=== PATIENT | male | born 2000 | race Caucasian/White ===

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

== ENCOUNTER 2023-02-26 09:44 | Emergency (ER) | payer OTHER ==
[~2023-02-26] VITALS: Ht 190.5 cm; Wt 74.8 kg
[2023-02-26 09:54] VITALS: BP_SYST 137; PULSE 89; RESP 18; TEMP 97.8; O2SAT 98
[2023-02-26] MEDS ORDERED: LIDOCAINE 1% 10 MG/ML, 20 ML MDV INJ ONE (10:00)
[2023-02-26] MEDS ORDERED: DIPHTH,PERTUSS(ACELL),TET VAC 0.5 ML VIAL (Tdap) I.M. ONE (10:00)
[2023-02-26] MEDS ORDERED: BACITRACIN 1 GM OINT TP ONE (10:00)
[2023-02-26 10:53] VITALS: BP_SYST 137; PULSE 60; RESP 16; TEMP 98.3; O2SAT 97
== END 2023-02-26 10:51 | disposition home or self-care (01) ==
LOC: SED 09:44
DX: S61.212A Laceration without foreign body of right middle finger without damage to nail, initial encounter (principal); Z88.0 Allergy status to penicillin; Z79.899 Other long term (current) drug therapy; W23.0XXA Caught, crushed, jammed, or pinched between moving objects, initial encounter; Y93.89 Activity, other specified; Y92.89 Other specified places as the place of occurrence of the external cause; Y99.8 Other external cause status
CPT/HCPCS: 99283; 90715; 90471; 12001; J2001

== ENCOUNTER 2023-03-05 12:30 | Emergency (ER) | payer OTHER ==
[~2023-03-05] VITALS: Ht 190.5 cm; Wt 88.5 kg
[2023-03-05 12:40] VITALS: BP_SYST 112; PULSE 89; RESP 18; TEMP 97.9; O2SAT 99
[2023-03-05 14:33] VITALS: BP_SYST 112; PULSE 89; RESP 18; TEMP 97.9; O2SAT 99
== END 2023-03-05 14:33 | disposition home or self-care (01) ==
LOC: SED 12:30
DX: S61.213D Laceration without foreign body of left middle finger without damage to nail, subsequent encounter (principal); Z48.02 Encounter for removal of sutures; Z88.0 Allergy status to penicillin; Z79.899 Other long term (current) drug therapy; X58.XXXD Exposure to other specified factors, subsequent encounter
CPT/HCPCS: 99281